=== PATIENT | male | born 1960 | race American Indian/Alaskan Native ===

== ENCOUNTER 2016-09-20 09:30 | Emergency (ER) | payer OTHER ==
--- NOTE | 2016-09-20 14:10 | Emergency Department Report ---
ED Back Pain/Injury HPI - General Chief Complaint: Extremity Injury, Lower Stated Complaint: TIGHT BEHIND BOTH LEGS Time Seen by Provider: 09/20/16 12:33 Source: patient Limitations: No Limitations - History of Present Illness Initial Comments: Patient complaining of atraumatic low back pain that is the same presentation and character as prior episodes. Patient states he is having some radicular bilateral thigh pain. Patient denies bowel or bladder incontinence, testicular pain, abdominal pain, nausea vomiting or diarrhea, also denies foot paresthesias or leg weakness. Patient states he was just cleared 2 weeks ago by his oncologist for multiple myeloma and had negative MRI of spine. MD Complaint: back pain -: Gradual - Related Data Previous Rx's Medication Instructions Recorded Last Taken Type Cyclobenzaprine [Flexeril] 10 mg PO TID PRN #15 tablet 09/20/16 Unknown Rx HYDROcodone/APAP 5-325 [[place] 1 each PO Q6HR PRN #10 tablet 09/20/16 Unknown Rx 5/325] Allergies Allergy/AdvReac Type Severity Reaction Status Date / Time No Known Allergies Allergy Unverified 09/03/14 10:11 ED Review of Systems ROS: Stated complaint: TIGHT BEHIND BOTH LEGS Other details as noted in HPI Constitutional: denies: chills, fever Eyes: denies: eye pain, eye discharge, vision change ENT: denies: ear pain, throat pain Respiratory: denies: cough, shortness of breath, wheezing Cardiovascular: denies: chest pain, palpitations Endocrine: no symptoms reported Gastrointestinal: denies: abdominal pain, nausea, vomiting, diarrhea, constipation, hematemesis Genitourinary: denies: urgency, dysuria, frequency, hematuria, testicular pain, testicular mass Musculoskeletal: back pain, other. denies: joint swelling, arthralgia Skin: denies: rash, lesions Neurological: denies: headache, weakness, paresthesias Psychiatric: denies: anxiety, depression Hematological/Lymphatic: denies: easy bleeding, easy bruising ED Past Medical Hx - Past Medical History Previous Medical History?: Yes Hx Hypertension: Yes Hx Diabetes: Yes Hx of Cancer: Yes (multiple myeloma) Additional medical history: Back injury - Surgical History Past Surgical History?: Yes Additional Surgical History: Stem Cell treatment - Social History Smoking Status: Never Smoker Substance Use Type: Alcohol, Prescribed - Medications Home Medications: Home Medications Medication Instructions Recorded Confirmed Last Taken Type Cyclobenzaprine [Flexeril] 10 mg PO TID PRN #15 tablet 09/20/16 Unknown Rx HYDROcodone/APAP 5-325 [[place] 1 each PO Q6HR PRN #10 tablet 09/20/16 Unknown Rx 5/325] ED Physical Exam - General Limitations: No Limitations General appearance: alert, in no apparent distress - Head Head exam: Present: atraumatic, normocephalic - Eye Eye exam: Present: normal appearance - ENT ENT exam: Present: mucous membranes moist - Neck Neck exam: Present: normal inspection. Absent: tenderness, meningismus - Respiratory Respiratory exam: Present: normal lung sounds bilaterally. Absent: respiratory distress - Cardiovascular Cardiovascular Exam: Present: regular rate, normal rhythm. Absent: systolic murmur, diastolic murmur, rubs, gallop - GI/Abdominal GI/Abdominal exam: Present: soft. Absent: distended, tenderness, guarding, rebound, rigid - Rectal Rectal exam: Present: deferred - Extremities Exam Extremities exam: Present: normal inspection, full ROM, normal capillary refill. Absent: tenderness, pedal edema, joint swelling, calf tenderness - Back Exam Back exam: Present: normal inspection, paraspinal tenderness. Absent: full ROM , CVA tenderness (R), CVA tenderness (L), vertebral tenderness, rash noted - Neurological Exam Neurological exam: Present: alert, oriented X3, normal gait - Psychiatric Psychiatric exam: Present: normal affect, normal mood - Skin Skin exam: Present: warm, dry, intact, normal color. Absent: rash ED Course Vital Signs 09/20/16 09:59 Temperature 98 F Pulse Rate 71 Respiratory 20 Rate Blood Pressure 152/98 O2 Sat by Pulse 96 Oximetry Critical care attestation.: If time is entered above; I have spent that time in minutes in the direct care of this critically ill patient, excluding procedure time. ED Disposition Clinical Impression: Back pain Disposition: DISCHARGED TO HOME OR SELFCARE Is pt being admited?: No Condition: Stable Instructions: Lumbar Radiculopathy (ED) Prescriptions: Cyclobenzaprine [Flexeril] 10 mg PO TID PRN #15 tablet PRN Reason: Muscle Spasm HYDROcodone/APAP 5-325 [[place] 5/325] 1 each PO Q6HR PRN #10 tablet PRN Reason: Pain Referrals: PRIMARY CARE,MD [Primary Care Provider] - 3-5 Days
[2016-09-20] MEDS ORDERED: DECADRON IM ONE (14:15)
[2016-09-20 14:52] VITALS: BP 134/92
== END 2016-09-20 14:50 | disposition home or self-care (01) ==
LOC: ED 09:30
DX: M54.5 Low back pain (principal); I10 Essential (primary) hypertension; E11.9 Type 2 diabetes mellitus without complications
CPT/HCPCS: 96372; 99282; J1100

== ENCOUNTER 2017-05-30 09:06 | Outpatient (CLI) | payer OTHER ==
--- NOTE | 2017-05-30 11:44 | Cat Scan Report ---
CT RIGHT SHOULDER WITHOUT AND WITH CONTRAST: 05/30/17 CLINICAL: Multiple myeloma and fracture. TECHNIQUE: Volumetric acquisition and 1.25 mm axial scan reconstructions without contrast and after the uneventful and intravenous injection of 100 cc Omnipaque 350. Contrast was injected in a left antecubital vein with a 22-gauge INT and consent was obtained prior to administration of contrast. FINDINGS: Transverse mildly displaced fracture of the humerus at the junction of the metaphysis and diaphysis. There is a large enhancing marrow lesion measuring approximately 12 cm in length by 4 cm transverse dimension by 3 cm AP dimension. This lytic lesion of the bone extends the width of the shaft and breaks through the medial cortex. A smaller 1.5 cm enhancing marrow lesion is identified approximately 3 cm distal to this larger lesion. This lesion is confined to the marrow. Normal glenohumeral alignment. Several lytic lesions of the glenoid, acromion, scapula and clavicle are consistent with lesions of multiple myeloma. No other fractures are identified. 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 A second lesion of the humeral diaphysis is confined to the marrow. Numerous additional lytic lesions of the scapula and clavicle are consistent with multiple myeloma.
== END 2017-05-30 09:07 | disposition home or self-care (01) ==
LOC: SPVIMAG 09:06
PROVIDERS: ATTEND Orthopaedic Surgery
DX: S42.301A Unspecified fracture of shaft of humerus, right arm, initial encounter for closed fracture (principal); C90.30 Solitary plasmacytoma not having achieved remission; X58.XXXA Exposure to other specified factors, initial encounter; Y93.89 Activity, other specified; Y92.89 Other specified places as the place of occurrence of the external cause; Y99.8 Other external cause status
CPT/HCPCS: 73202; Q9967

== ENCOUNTER 2018-10-05 12:20 | Emergency (ER) | payer OTHER ==
[2018-10-05] MEDS ORDERED: NACL 0.9% 1000 ML 1,000 ML IV ONE (13:02)
[2018-10-05] MEDS ORDERED: HumuLIN R IV ONE ×2 (13:02→16:02)
[2018-10-05 13:16] LABS: Hematocrit 37.2 % (35.5-45.6); Hemoglobin 12.6 gm/dl (11.8-15.2); Mean Corpuscular HGB Conc 34 % (32-34); Mean Corpuscular Volume 89 fl (84-94); Platelet Count 161 K/mm3 (140-440); Red Blood Count 4.18 M/mm3 (3.65-5.03); Red Cell Distribution Width 14.1 % (13.2-15.2)
[2018-10-05 13:54] LABS: Alanine Aminotransferase 51 units/L (7-56); Albumin 4.2 g/dL (3.9-5); BUN/Creatinine Ratio 17; Blood Urea Nitrogen 15 mg/dL (9-20); Calcium 9.4 mg/dL (8.4-10.2); Hemolysis Index 32
[2018-10-05 14:06] LABS: Basophils % (Manual) 0 % (0.0-1.8); Eosinophils % (Manual) 0 % (0.0-4.3); Myelocytes # (Manual) 0.1 K/mm3; Total Cells Counted 100
[2018-10-05 14:11] LABS: Poikilocytosis Few
[2018-10-05 14:12] LABS: Large Platelets Rare; Ovalocytes Few; Platelet Estimate Consistent w Auto
[2018-10-05 14:56] LABS: Bilirubin,Urine NEG (Negative); Blood,Urine SM (Negative); Color,Urine Straw (Yellow); Mucus,Urine FEW /HPF; Protein,Urine <15 mg/dL mg/dL (Negative); Urobilinogen,Urine < 2.0 mg/dL (<2.0)
[2018-10-05] MEDS ORDERED: HumuLIN R ONE (15:54)
[2018-10-05 16:02] VITALS: BP 106/70
--- NOTE | 2018-10-05 16:09 | Emergency Department Report ---
ED General Adult HPI - General Chief complaint: Hyperglycemia Stated complaint: HIGH GLUCOSE Time Seen by Provider: 10/05/18 13:00 Source: patient Mode of arrival: Ambulatory Limitations: No Limitations - History of Present Illness Initial comments: Patient is a 58-year-old [place] male with past history of diabetes who is presenting with hyperglycemia. Patient's last several days has had urinary frequency. He denies any abdominal cramps nausea vomiting diarrhea fevers or chills at this time. Patient states she's been eating quite a bit of fruit trying to be healthy but he states that he believes the sugar that his eating is disrupting his blood glucose. Patient saw his primary doctor and was told to come to the emergency department for evaluation. - Related Data Previous Rx's Medication Instructions Recorded Last Taken Type Cyclobenzaprine [Flexeril] 10 mg PO TID PRN #15 tablet 09/20/16 Unknown Rx HYDROcodone/APAP 5-325 [[place] 1 each PO Q6HR PRN #10 tablet 09/20/16 Unknown Rx 5/325] Allergies Allergy/AdvReac Type Severity Reaction Status Date / Time No Known Allergies Allergy Verified 10/05/18 12:22 ED Review of Systems ROS: Stated complaint: HIGH GLUCOSE Other details as noted in HPI Comment: All other systems reviewed and negative ED Past Medical Hx - Past Medical History Previous Medical History?: Yes Hx Hypertension: Yes Hx Diabetes: Yes (Type 11) Additional medical history: Back injury- Lumba disc. Multiple Myeloma - Surgical History Past Surgical History?: Yes Additional Surgical History: Stem Cell treatment - Social History Smoking Status: Never Smoker Substance Use Type: Alcohol - Medications Home Medications: Home Medications Medication Instructions Recorded Confirmed Last Taken Type Cyclobenzaprine [Flexeril] 10 mg PO TID PRN #15 tablet 09/20/16 Unknown Rx HYDROcodone/APAP 5-325 [[place] 1 each PO Q6HR PRN #10 tablet 09/20/16 Unknown Rx 5/325] ED Physical Exam - General Limitations: No Limitations General appearance: alert, in no apparent distress - Head Head exam: Present: atraumatic, normocephalic - Eye Eye exam: Present: normal appearance - ENT ENT exam: Present: mucous membranes moist - Neck Neck exam: Present: normal inspection - Respiratory Respiratory exam: Present: normal lung sounds bilaterally. Absent: respiratory distress, wheezes, rales, rhonchi - Cardiovascular Cardiovascular Exam: Present: regular rate, normal rhythm. Absent: systolic murmur, diastolic murmur, rubs, gallop - GI/Abdominal GI/Abdominal exam: Present: soft, normal bowel sounds. Absent: distended, tenderness, guarding, rebound - Rectal Rectal exam: Present: deferred - Extremities Exam Extremities exam: Present: normal inspection - Back Exam Back exam: Present: normal inspection - Neurological Exam Neurological exam: Present: alert, oriented X3 - Psychiatric Psychiatric exam: Present: normal affect, normal mood - Skin Skin exam: Present: warm, dry, intact, normal color. Absent: rash ED Course Vital Signs 10/05/18 10/05/18 10/05/18 12:39 13:27 13:31 Temperature 98.3 F Pulse Rate 88 84 Respiratory 16 18 Rate Blood Pressure 120/76 117/79 O2 Sat by Pulse 99 97 93 Oximetry 10/05/18 10/05/18 10/05/18 13:45 14:01 14:15 Temperature Pulse Rate Respiratory Rate Blood Pressure 117/79 117/79 117/79 O2 Sat by Pulse 94 94 88 Oximetry 10/05/18 10/05/18 10/05/18 14:30 14:45 15:00 Temperature Pulse Rate 77 74 74 Respiratory 23 21 23 Rate Blood Pressure 107/68 113/67 106/70 O2 Sat by Pulse 97 97 97 Oximetry 10/05/18 10/05/18 10/05/18 15:15 15:30 15:45 Temperature Pulse Rate 77 75 75 Respiratory 13 15 18 Rate Blood Pressure 107/68 107/72 106/70 O2 Sat by Pulse 98 99 95 Oximetry ED Medical Decision Making - Lab Data Result diagrams: 10/05/18 13:05 10/05/18 13:02 Lab Results 10/05/18 10/05/18 10/05/18 Range/Units 12:35 13:02 13:05 WBC 3.6 L (4.5-11.0) K/mm3 RBC 4.18 (3.65-5.03) M/mm3 Hgb 12.6 (11.8-15.2) gm/dl Hct 37.2 (35.5-45.6) % MCV 89 (84-94) fl MCH 30 (28-32) pg MCHC 34 (32-34) % RDW 14.1 (13.2-15.2) % Plt Count 161 (140-440) K/mm3 Mclean % (Auto) Treating Plant Pumper Add Manual Diff Complete Total Counted 100 Seg Neuts % (Manual) 56.0 (40.0-70.0) % Band Neutrophils % 0 % Lymphocytes % (Manual) 31.0 (13.4-35.0) % Reactive Lymphs % (Man) 0 % Monocytes % (Manual) 11.0 H (0.0-7.3) % Eosinophils % (Manual) 0 (0.0-4.3) % Basophils % (Manual) 0 (0.0-1.8) % Metamyelocytes % 0 % Myelocytes % 2.0 % Promyelocytes % 0 % Blast Cells % 0 % Nucleated RBC % Not Reportable Seg Neutrophils # Man 2.0 (1.8-7.7) K/mm3 Band Neutrophils # 0.0 K/mm3 Lymphocytes # (Manual) 1.1 L (1.2-5.4) K/mm3 Abs React Lymphs (Man) 0.0 K/mm3 Monocytes # (Manual) 0.4 (0.0-0.8) K/mm3 Eosinophils # (Manual) 0.0 (0.0-0.4) K/mm3 Basophils # (Manual) 0.0 (0.0-0.1) K/mm3 Metamyelocytes # 0.0 K/mm3 Myelocytes # 0.1 K/mm3 Promyelocytes # 0.0 K/mm3 Blast Cells # 0.0 K/mm3 WBC Morphology Not Reportable Hypersegmented Neuts Not Reportable Hyposegmented Neuts Not Reportable Hypogranular Neuts Not Reportable Smudge Cells Not Reportable Toxic Granulation Not Reportable Toxic Vacuolation Not Reportable Dohle Bodies Not Reportable Pelger-Huet Anomaly Not Reportable Jake Rods Not Reportable Platelet Estimate Consistent w auto Clumped Platelets Not Reportable Plt Clumps, EDTA Not Reportable Large Platelets Rare Giant Platelets Not Reportable Platelet Satelliting Not Reportable Plt Morphology Comment Not Reportable RBC Morphology Not Reportable Dimorphic RBCs Not Reportable Polychromasia Not Reportable Hypochromasia Not Reportable Poikilocytosis Few Anisocytosis Not Reportable Microcytosis Not Reportable Macrocytosis Not Reportable Spherocytes Not Reportable Pappenheimer Bodies Not Reportable Sickle Cells Not Reportable Target Cells Not Reportable Tear Drop Cells Not Reportable Ovalocytes Few Helmet Cells Not Reportable Aldrich-[place] Bodies Not Reportable [place] Rings Not Reportable [place] Cells Not Reportable Bite Cells Not Reportable Crenated Cell Not Reportable Elliptocytes Rare Acanthocytes (Spur) Not Reportable Rouleaux Not Reportable Hemoglobin C Crystals Not Reportable Schistocytes Not Reportable Malaria parasites Not Reportable Rayshawn Bodies Not Reportable Hem Pathologist Commnt No Sodium 135 L (137-145) mmol/L Potassium 4.2 (3.6-5.0) mmol/L Chloride 98.7 (98-107) mmol/L Carbon Dioxide 23 (22-30) mmol/L Anion Gap 18 mmol/L BUN 15 (9-20) mg/dL Creatinine 0.9 (0.8-1.5) mg/dL Estimated GFR > 60 ml/min BUN/Creatinine Ratio 17 % Glucose 464 H (75-100) mg/dL POC Glucose 438 H (70-105) Calcium 9.4 (8.4-10.2) mg/dL Total Bilirubin 0.40 (0.1-1.2) mg/dL AST 25 (5-40) units/L ALT 51 (7-56) units/L Alkaline Phosphatase 49 (35-129) units/L Total Protein 6.9 (6.3-8.2) g/dL Albumin 4.2 (3.9-5) g/dL Albumin/Globulin Ratio 1.6 % Urine Color (Yellow) Urine Turbidity (Clear) Urine pH (5.0-7.0) Ur Specific [place] (1.003-1.030) Urine Protein (Negative) mg/dL Urine Glucose (UA) (Negative) mg/dL Urine Ketones (Negative) mg/dL Urine Blood (Negative) Urine Nitrite (Negative) Urine Bilirubin (Negative) Urine Urobilinogen (<2.0) mg/dL Ur Leukocyte Esterase (Negative) Urine WBC (Auto) (0.0-6.0) /HPF Urine RBC (Auto) (0.0-6.0) /HPF U Epithel Cells (Auto) (0-13.0) /HPF Urine Mucus /HPF 10/05/18 10/05/18 Range/Units 14:36 15:47 WBC (4.5-11.0) K/mm3 RBC (3.65-5.03) M/mm3 Hgb (11.8-15.2) gm/dl Hct (35.5-45.6) % MCV (84-94) fl MCH (28-32) pg MCHC (32-34) % RDW (13.2-15.2) % Plt Count (140-440) K/mm3 Mclean % (Auto) Add Manual Diff Total Counted Seg Neuts % (Manual) (40.0-70.0) % Band Neutrophils % % Lymphocytes % (Manual) (13.4-35.0) % Reactive Lymphs % (Man) % Monocytes % (Manual) (0.0-7.3) % Eosinophils % (Manual) (0.0-4.3) % Basophils % (Manual) (0.0-1.8) % Metamyelocytes % % Myelocytes % % Promyelocytes % % Blast Cells % % Nucleated RBC % Seg Neutrophils # Man (1.8-7.7) K/mm3 Band Neutrophils # K/mm3 Lymphocytes # (Manual) (1.2-5.4) K/mm3 Abs React Lymphs (Man) K/mm3 Monocytes # (Manual) (0.0-0.8) K/mm3 Eosinophils # (Manual) (0.0-0.4) K/mm3 Basophils # (Manual) (0.0-0.1) K/mm3 Metamyelocytes # K/mm3 Myelocytes # K/mm3 Promyelocytes # K/mm3 Blast Cells # K/mm3 WBC Morphology Hypersegmented Neuts Hyposegmented Neuts Hypogranular Neuts Smudge Cells Toxic Granulation Toxic Vacuolation Dohle Bodies Pelger-Huet Anomaly Jake Rods Platelet Estimate Clumped Platelets Plt Clumps, EDTA Large Platelets Giant Platelets Platelet Satelliting Plt Morphology Comment RBC Morphology Dimorphic RBCs Polychromasia Hypochromasia Poikilocytosis Anisocytosis Microcytosis Macrocytosis Spherocytes Pappenheimer Bodies Sickle Cells Target Cells Tear Drop Cells Ovalocytes Helmet Cells Aldrich-[place] Bodies [place] Rings Ivan Cells Bite Cells Crenated Cell Elliptocytes Acanthocytes (Spur) Rouleaux Hemoglobin C Crystals Schistocytes Malaria parasites Rayshawn Bodies Hem Pathologist Commnt Sodium (137-145) mmol/L Potassium (3.6-5.0) mmol/L Chloride (98-107) mmol/L Carbon Dioxide (22-30) mmol/L Anion Gap mmol/L BUN (9-20) mg/dL Creatinine (0.8-1.5) mg/dL Estimated GFR ml/min BUN/Creatinine Ratio % Glucose (75-100) mg/dL POC Glucose 306 H (70-105) Calcium (8.4-10.2) mg/dL Total Bilirubin (0.1-1.2) mg/dL AST (5-40) units/L ALT (7-56) units/L Alkaline Phosphatase (35-129) units/L Total Protein (6.3-8.2) g/dL Albumin (3.9-5) g/dL Albumin/Globulin Ratio % Urine Color Straw (Yellow) Urine Turbidity Clear (Clear) Urine pH 5.0 (5.0-7.0) Ur Specific [place] 1.033 H (1.003-1.030) Urine Protein <15 mg/dl (Negative) mg/dL Urine Glucose (UA) >=500 (Negative) mg/dL Urine Ketones Tr (Negative) mg/dL Urine Blood Sm (Negative) Urine Nitrite Neg (Negative) Urine Bilirubin Neg (Negative) Urine Urobilinogen < 2.0 (<2.0) mg/dL Ur Leukocyte Esterase Neg (Negative) Urine WBC (Auto) 1.0 (0.0-6.0) /HPF Urine RBC (Auto) 1.0 (0.0-6.0) /HPF U Epithel Cells (Auto) 1.0 (0-13.0) /HPF Urine Mucus Few /HPF - Medical Decision Making Per patient's laboratory interpretation is not in DKA. Patient's glucose is improving after IV fluids and insulin and hydration be discharged home. Critical care attestation.: If time is entered above; I have spent that time in minutes in the direct care of this critically ill patient, excluding procedure time. ED Disposition Clinical Impression: Hyperglycemia Disposition: DC-01 TO HOME OR SELFCARE Is pt being admited?: No Does the pt Need Aspirin: No Condition: Stable Instructions: Hyperglycemia, Non-Diabetic (ED) Additional Instructions: Please follow-up with your primary care physician regarding diabetes diet Referrals: EULALIA FISHER MD [Primary Care Provider] - 3-5 Days Time of Disposition: 16:08
== END 2018-10-05 16:21 | disposition home or self-care (01) ==
LOC: ED 12:20
DX: E11.65 Type 2 diabetes mellitus with hyperglycemia (principal); I10 Essential (primary) hypertension; Z79.899 Other long term (current) drug therapy
CPT/HCPCS: 36415; 80053; 81001; 82962; 85007; 85025; 96361; 96374; 96376; 99283; J7030; J1815

== ENCOUNTER 2020-02-24 15:12 | Emergency (ER) | payer OTHER ==
[2020-02-24] MEDS ORDERED: SODIUM CHLORIDE 0.9% 1000 ML 1,000 ML IV ONE (16:32)
--- NOTE | 2020-02-24 18:15 | Emergency Department Report ---
ED General Adult HPI - General Chief complaint: Hyperglycemia Stated complaint: BLOOD SUGAR HIGH Time Seen by Provider: 02/24/20 16:32 Source: patient Mode of arrival: Ambulatory Limitations: No Limitations - History of Present Illness Initial comments: Patient is a 59-year-old male presents emergency room with complaints of hyperglycemia. He states that yesterday his blood sugar was 300 when he woke up in the morning. He states that when he rechecked it later in the afternoon and it decreased down to 200s. He states that today when he checked it was 322. He states that he does not follow a strict diet for diabetes. He denies any nausea, vomiting, diarrhea, cough, shortness breath, fever, abdominal pain, chest pain. He also has a past medical history of hypertension. He states that he takes metformin for his diabetes at thousand milligrams twice daily. He does not take anything else for his diabetes. He states that he does have a primary care doctor that he sees regularly. - Related Data Previous Rx's Medication Instructions Recorded Last Taken Type Cyclobenzaprine [Flexeril] 10 mg PO TID PRN #15 tablet 09/20/16 Unknown Rx HYDROcodone/APAP 5-325 [[place] 1 each PO Q6HR PRN #10 tablet 09/20/16 Unknown Rx 5/325] Allergies Allergy/AdvReac Type Severity Reaction Status Date / Time No Known Allergies Allergy Verified 10/05/18 12:22 ED Review of Systems ROS: Stated complaint: BLOOD SUGAR HIGH Other details as noted in HPI Comment: All other systems reviewed and negative ED Past Medical Hx - Past Medical History Previous Medical History?: Yes Hx Hypertension: Yes Hx Diabetes: Yes (Type 11) Hx of Cancer: Yes (Bone CA 2007, takes PO Chemo) Additional medical history: Back injury- Lumba disc. Multiple Myeloma - Surgical History Past Surgical History?: Yes Additional Surgical History: Stem Cell treatment - Social History Smoking Status: Never Smoker Substance Use Type: Alcohol - Medications Home Medications: Home Medications Medication Instructions Recorded Confirmed Last Taken Type Cyclobenzaprine [Flexeril] 10 mg PO TID PRN #15 tablet 09/20/16 Unknown Rx HYDROcodone/APAP 5-325 [[place] 1 each PO Q6HR PRN #10 tablet 09/20/16 Unknown Rx 5/325] ED Physical Exam - General Limitations: No Limitations General appearance: alert, in no apparent distress - Head Head exam: Present: atraumatic, normocephalic - Eye Eye exam: Present: normal appearance - ENT ENT exam: Present: mucous membranes moist - Respiratory Respiratory exam: Present: normal lung sounds bilaterally. Absent: respiratory distress, wheezes, rales, rhonchi, stridor, chest wall tenderness, accessory muscle use, decreased breath sounds, prolonged expiratory - Cardiovascular Cardiovascular Exam: Present: regular rate, normal rhythm, normal heart sounds. Absent: systolic murmur, diastolic murmur, rubs, gallop - Neurological Exam Neurological exam: Present: alert, oriented X3 - Psychiatric Psychiatric exam: Present: normal affect, normal mood - Skin Skin exam: Present: warm, dry, intact ED Course Vital Signs 02/24/20 02/24/20 15:29 20:15 Temperature 98.3 F Pulse Rate 79 75 Respiratory 18 18 Rate Blood Pressure 121/73 Blood Pressure 132/84 [Right] O2 Sat by Pulse 99 98 Oximetry ED Medical Decision Making - Lab Data Result diagrams: 02/24/20 16:07 02/24/20 16:07 Lab Results 02/24/20 02/24/20 02/24/20 Range/Units 15:45 16:07 16:07 WBC 4.0 L (4.5-11.0) K/mm3 RBC 3.71 (3.65-5.03) M/mm3 Hgb 11.9 (11.8-15.2) gm/dl Hct 35.4 L (35.5-45.6) % MCV 95 H (84-94) fl MCH 32 (28-32) pg MCHC 34 (32-34) % RDW 15.4 H (13.2-15.2) % Plt Count 138 L (140-440) K/mm3 Lymph % (Auto) 38.8 H (13.4-35.0) % [place] % (Auto) 11.0 H (0.0-7.3) % Eos % (Auto) 3.9 (0.0-4.3) % Baso % (Auto) 0.6 (0.0-1.8) % Lymph # 1.5 (1.2-5.4) K/mm3 [place] # 0.4 (0.0-0.8) K/mm3 Eos # 0.2 (0.0-0.4) K/mm3 Baso # 0.0 (0.0-0.1) K/mm3 Seg Neutrophils % 45.7 (40.0-70.0) % Seg Neutrophils # 1.8 (1.8-7.7) K/mm3 VBG pH (7.320-7.420) Sodium 133 L (137-145) mmol/L Potassium 4.4 (3.6-5.0) mmol/L Chloride 95.2 L (98-107) mmol/L Carbon Dioxide 24 (22-30) mmol/L Anion Gap 18 mmol/L BUN 19 (9-20) mg/dL Creatinine 1.1 (0.8-1.3) mg/dL Estimated GFR > 60 ml/min BUN/Creatinine Ratio 17 % Glucose 355 H (75-100) mg/dL POC Glucose 360 H (70-105) Calcium 9.8 (8.4-10.2) mg/dL Total Bilirubin 0.40 (0.1-1.2) mg/dL AST 26 (5-40) units/L ALT 70 H (7-56) units/L Alkaline Phosphatase 55 (35-129) units/L Total Protein 6.7 (6.3-8.2) g/dL Albumin 4.1 (3.9-5) g/dL Albumin/Globulin Ratio 1.6 % Urine Color (Yellow) Urine Turbidity (Clear) Urine pH (5.0-7.0) Ur Specific [place] (1.003-1.030) Urine Protein (Negative) mg/dL Urine Glucose (UA) (Negative) mg/dL Urine Ketones (Negative) mg/dL Urine Blood (Negative) Urine Nitrite (Negative) Urine Bilirubin (Negative) Urine Urobilinogen (<2.0) mg/dL Ur Leukocyte Esterase (Negative) Urine WBC (Auto) (0.0-6.0) /HPF Urine RBC (Auto) (0.0-6.0) /HPF U Epithel Cells (Auto) (0-13.0) /HPF Urine Mucus /HPF 02/24/20 02/24/20 02/24/20 Range/Units 16:07 18:07 20:17 WBC (4.5-11.0) K/mm3 RBC (3.65-5.03) M/mm3 Hgb (11.8-15.2) gm/dl Hct (35.5-45.6) % MCV (84-94) fl MCH (28-32) pg MCHC (32-34) % RDW (13.2-15.2) % Plt Count (140-440) K/mm3 Lymph % (Auto) (13.4-35.0) % [place] % (Auto) (0.0-7.3) % Eos % (Auto) (0.0-4.3) % Baso % (Auto) (0.0-1.8) % Lymph # (1.2-5.4) K/mm3 [place] # (0.0-0.8) K/mm3 Eos # (0.0-0.4) K/mm3 Baso # (0.0-0.1) K/mm3 Seg Neutrophils % (40.0-70.0) % Seg Neutrophils # (1.8-7.7) K/mm3 VBG pH 7.334 (7.320-7.420) Sodium (137-145) mmol/L Potassium (3.6-5.0) mmol/L Chloride (98-107) mmol/L Carbon Dioxide (22-30) mmol/L Anion Gap mmol/L BUN (9-20) mg/dL Creatinine (0.8-1.3) mg/dL Estimated GFR ml/min BUN/Creatinine Ratio % Glucose (75-100) mg/dL POC Glucose 252 H (70-105) Calcium (8.4-10.2) mg/dL Total Bilirubin (0.1-1.2) mg/dL AST (5-40) units/L ALT (7-56) units/L Alkaline Phosphatase (35-129) units/L Total Protein (6.3-8.2) g/dL Albumin (3.9-5) g/dL Albumin/Globulin Ratio % Urine Color Yellow (Yellow) Urine Turbidity Clear (Clear) Urine pH 5.0 (5.0-7.0) Ur Specific [place] 1.022 (1.003-1.030) Urine Protein <15 mg/dl (Negative) mg/dL Urine Glucose (UA) >=500 (Negative) mg/dL Urine Ketones Neg (Negative) mg/dL Urine Blood Lg (Negative) Urine Nitrite Neg (Negative) Urine Bilirubin Neg (Negative) Urine Urobilinogen < 2.0 (<2.0) mg/dL Ur Leukocyte Esterase Neg (Negative) Urine WBC (Auto) 3.0 (0.0-6.0) /HPF Urine RBC (Auto) 11.0 (0.0-6.0) /HPF U Epithel Cells (Auto) < 1.0 (0-13.0) /HPF Urine Mucus Few /HPF Vital Signs 02/24/20 02/24/20 15:29 20:15 Temperature 98.3 F Pulse Rate 79 75 Respiratory 18 18 Rate Blood Pressure 121/73 Blood Pressure 132/84 [Right] O2 Sat by Pulse 99 98 Oximetry - Medical Decision Making Patient is a 59-year-old male presents emergency room with complaints of hyperglycemia. He states that yesterday his blood sugar was 300 when he woke up in the morning. He states that when he rechecked it later in the afternoon and it decreased down to 200s. He states that today when he checked it was 322. He states that he does not follow a strict diet for diabetes. He denies any nausea, vomiting, diarrhea, cough, shortness breath, fever, abdominal pain, chest pain. He also has a past medical history of hypertension. He states that he takes metformin for his diabetes at thousand milligrams twice daily. He does not take anything else for his diabetes. He states that he does have a primary care doctor that he sees regularly. Vitals are normal. No abnormality on physical exam as documented in chart. Labs significant for hyperglycemia blood glucose of 355, renal function is normal, no ketones in the urine, no signs of DKA. Patient given 1 L IV fluids and 6 units of insulin and blood glucose improved to 252. Discussed diet and lifestyle modifications with patient. Discussed the risks associated with long-term uncontrolled diabetes with patient. Discussed the importance of primary care follow-up for better glycemic control. Patient states that he is going to follow-up with his primary care physician tomorrow. advised pt Please follow-up with your primary care doctor in the next 2 to 3 days. You need to have better glycemic control. Please eat a low sugar/low carbohydrate diet. Increase your water intake. Return to emergency room for new or worsening symptoms. Critical care attestation.: If time is entered above; I have spent that time in minutes in the direct care of this critically ill patient, excluding procedure time. ED Disposition Clinical Impression: Hyperglycemia Disposition: DC-01 TO HOME OR SELFCARE Is pt being admited?: No Does the pt Need Aspirin: No Condition: Stable Instructions: Diabetic Hyperglycemia (ED) Additional Instructions: Please follow-up with your primary care doctor in the next 2 to 3 days. You need to have better glycemic control. Please eat a low sugar/low carbohydrate diet. Increase your water intake. Return to emergency room for new or worsening symptoms. Referrals: PRIMARY CARE, [Primary Care Provider] - 2-3 Days Time of Disposition: 20:03 Print Language: JAPANESE
[2020-02-24 18:24] LABS: Basophils % (Auto) 0.6 % (0.0-1.8); Eosinophils # (Auto) 0.2 K/mm3 (0.0-0.4); Eosinophils % (Auto) 3.9 % (0.0-4.3); Hematocrit 35.4 % (35.5-45.6); Hemoglobin 11.9 gm/dl (11.8-15.2); Lymphocytes # (Auto) 1.5 K/mm3 (1.2-5.4); Lymphocytes % (Auto) 38.8 % (13.4-35.0); Mean Corpuscular HGB Conc 34 % (32-34); Mean Corpuscular Volume 95 fl (84-94); Monocytes # (Auto) 0.4 K/mm3 (0.0-0.8); Platelet Count 138 K/mm3 (140-440); Red Blood Count 3.71 M/mm3 (3.65-5.03); Red Cell Distribution Width 15.4 % (13.2-15.2)
[2020-02-24 18:40] LABS: Bilirubin,Urine NEG (Negative); Blood,Urine LG (Negative); Color,Urine Yellow (Yellow); Mucus,Urine FEW /HPF; Protein,Urine <15 mg/dL mg/dL (Negative); Urobilinogen,Urine < 2.0 mg/dL (<2.0)
[2020-02-24 18:46] LABS: Alanine Aminotransferase 70 units/L (7-56); Albumin 4.1 g/dL (3.9-5); BUN/Creatinine Ratio 17; Blood Urea Nitrogen 19 mg/dL (9-20); Calcium 9.8 mg/dL (8.4-10.2); Hemolysis Index 23
[2020-02-24] MEDS ORDERED: INSULIN REGULAR, HUMAN 100 UNIT/ML 3ML VIAL IV ONE (18:54)
[2020-02-24] MEDS ORDERED: INSULIN REGULAR, HUMAN 100 UNITS/1 ML ONE (19:30)
[2020-02-24 20:16] VITALS: BP 132/84
== END 2020-02-24 20:15 | disposition home or self-care (01) ==
LOC: ED 15:12
DX: E11.65 Type 2 diabetes mellitus with hyperglycemia (principal); I10 Essential (primary) hypertension; Z85.830 Personal history of malignant neoplasm of bone; Z98.890 Other specified postprocedural states; Z79.899 Other long term (current) drug therapy
CPT/HCPCS: 36415; 80053; 81001; 82805; 82962; 85025; 96361; 96374; 99283; J7030; J1815

== ENCOUNTER 2020-03-23 11:06 | Observation (INO) | payer OTHER ==
[2020-03-23] MEDS ORDERED: SODIUM CHLORIDE 0.9% 1000 ML 1,000 ML IV ONE (12:57)
--- NOTE | 2020-03-23 13:09 | Emergency Department Report ---
ED General Adult HPI - General Chief complaint: Urogenital-Male Stated complaint: CANT URINATE Time Seen by Provider: 03/23/20 12:50 Source: patient Mode of arrival: Ambulatory Limitations: No Limitations - History of Present Illness Initial comments: This is a 59-year-old man that definitely gives a confusing history. It states in triage that he "cannot urinate". Initially it sounded like he was urinating with less frequency. However, upon more detailed questioning he stated that he urinated 3 times in the waiting room and then was able to give a urine sample upon bed placement. He states he has had some discomfort upon urinating. He states he checked his sugar yesterday and it was 150. He has been taking metformin and glipizide as directed. He is not on insulin. He does not report any shortness of breath, nausea, vomiting or any other specific symptoms and denies fever or chills as well. He does not have a history of prostate related problems. Patient was seen here at the end of January for "diabetic hyperglycemia". He was given IV fluids. He was not in DKA. Sugar was approximately 330. -: hour(s), days(s) Associated Symptoms: denies other symptoms - Related Data Previous Rx's Medication Instructions Recorded Last Taken Type Cyclobenzaprine [Flexeril] 10 mg PO TID PRN #15 tablet 09/20/16 Unknown Rx HYDROcodone/APAP 5-325 [[place] 1 each PO Q6HR PRN #10 tablet 09/20/16 Unknown Rx 5/325] Allergies Allergy/AdvReac Type Severity Reaction Status Date / Time No Known Allergies Allergy Verified 10/05/18 12:22 ED Review of Systems ROS: Stated complaint: CANT URINATE Other details as noted in HPI Constitutional: denies: chills, fever Eyes: denies: eye pain, eye discharge, vision change ENT: denies: ear pain, throat pain Respiratory: denies: cough, shortness of breath, wheezing Cardiovascular: denies: chest pain, palpitations Endocrine: see HPI Gastrointestinal: denies: abdominal pain, nausea, diarrhea Genitourinary: dysuria, frequency. denies: urgency Musculoskeletal: denies: back pain, joint swelling, arthralgia Skin: denies: rash, lesions Neurological: denies: headache, weakness, paresthesias Psychiatric: denies: anxiety, depression Hematological/Lymphatic: denies: easy bleeding, easy bruising ED Past Medical Hx - Past Medical History Previous Medical History?: Yes Hx Hypertension: Yes Hx Diabetes: Yes (Type 11) Additional medical history: Back injury- Lumba disc. Multiple Myeloma - Surgical History Past Surgical History?: Yes Additional Surgical History: Stem Cell treatment - Social History Smoking Status: Never Smoker Substance Use Type: Alcohol - Medications Home Medications: Home Medications Medication Instructions Recorded Confirmed Last Taken Type Cyclobenzaprine [Flexeril] 10 mg PO TID PRN #15 tablet 09/20/16 Unknown Rx HYDROcodone/APAP 5-325 [[place] 1 each PO Q6HR PRN #10 tablet 09/20/16 Unknown Rx 5/325] ED Physical Exam - General Limitations: No Limitations General appearance: alert, in no apparent distress - Head Head exam: Present: atraumatic, normocephalic - Eye Eye exam: Present: normal appearance. Absent: scleral icterus - ENT ENT exam: Present: mucous membranes moist - Neck Neck exam: Present: normal inspection - Respiratory Respiratory exam: Present: normal lung sounds bilaterally. Absent: respiratory distress - Cardiovascular Cardiovascular Exam: Present: regular rate, normal rhythm. Absent: systolic murmur, diastolic murmur, rubs, gallop - GI/Abdominal GI/Abdominal exam: Present: soft, normal bowel sounds. Absent: distended, tenderness, guarding, rebound - Rectal Rectal exam: Present: deferred - Extremities Exam Extremities exam: Present: normal inspection - Back Exam Back exam: Present: normal inspection - Neurological Exam Neurological exam: Present: alert, oriented X3, CN II-XII intact. Absent: motor sensory deficit - Psychiatric Psychiatric exam: Present: normal affect, normal mood - Skin Skin exam: Present: warm, dry, intact, normal color. Absent: rash ED Course Vital Signs 03/23/20 03/23/20 11:24 14:28 Temperature 98 F Pulse Rate 88 Respiratory 20 Rate Blood Pressure 132/62 Blood Pressure 177/102 [Left] O2 Sat by Pulse 100 Oximetry - Reevaluation(s) Reevaluation #1: Patient had persistent hypoglycemia related to diabetic nephropathy/sulfonylurea. He is appropriate for observation on MedSurg. His sugar did not go up after eating. He was given D50. He will be placed on D5 h correction-normal saline. He will be admitted by Dr. Samayoa for glucose and renal function monitoring. 03/23/20 14:49 ED Medical Decision Making - Lab Data Result diagrams: 03/23/20 12:58 03/23/20 12:58 Laboratory Results - last 24 hr 03/23/20 03/23/20 03/23/20 12:58 12:58 13:04 WBC 5.5 RBC 3.43 L Hgb 11.2 L Hct 33.1 L MCV 97 H MCH 33 H MCHC 34 RDW 15.3 H Plt Count 198 Lymph % (Auto) 24.3 [place] % (Auto) 9.0 H Eos % (Auto) 4.2 Baso % (Auto) 0.8 Lymph # (Auto) 1.3 [place] # (Auto) 0.5 Eos # (Auto) 0.2 Baso # (Auto) 0.0 Seg Neutrophils % 61.7 Seg Neutrophils # 3.4 VBG pH 7.386 Sodium 141 Potassium 4.5 Chloride 101.3 Carbon Dioxide 27 Anion Gap 17 BUN 21 H Creatinine 1.5 H Estimated GFR 58 BUN/Creatinine Ratio 14 Glucose 53 L Calcium 10.5 H Critical care attestation.: If time is entered above; I have spent that time in minutes in the direct care of this critically ill patient, excluding procedure time. ED Disposition Clinical Impression: Hypoglycemia associated with type 2 diabetes mellitus, Acute kidney injury Diabetic nephropathy Qualifiers: Diabetes mellitus type: type 2 Qualified Code(s): E11.21 - Type 2 diabetes mellitus with diabetic nephropathy Disposition: OP ADMIT IP TO THIS HOSP Is pt being admited?: Yes Does the pt Need Aspirin: Yes Condition: Stable Instructions: Diabetes Mellitus Type 2 in Adults (ED) Time of Disposition: 14:51
[2020-03-23 13:46] LABS: Basophils % (Auto) 0.8 % (0.0-1.8); Eosinophils # (Auto) 0.2 K/mm3 (0.0-0.4); Eosinophils % (Auto) 4.2 % (0.0-4.3); Hematocrit 33.1 % (35.5-45.6); Hemoglobin 11.2 gm/dl (11.8-15.2); Lymphocytes # (Auto) 1.3 K/mm3 (1.2-5.4); Lymphocytes % (Auto) 24.3 % (13.4-35.0); Mean Corpuscular HGB Conc 34 % (32-34); Mean Corpuscular Volume 97 fl (84-94); Monocytes # (Auto) 0.5 K/mm3 (0.0-0.8); Platelet Count 198 K/mm3 (140-440); Red Blood Count 3.43 M/mm3 (3.65-5.03); Red Cell Distribution Width 15.3 % (13.2-15.2)
[2020-03-23 13:58] LABS: Calcium 10.5 mg/dL (8.4-10.2)
[2020-03-23 14:28] LABS: Amorphous Crystals,Urine Few; Bilirubin,Urine NEG (Negative); Blood,Urine MOD (Negative); Color,Urine Yellow (Yellow); Protein,Urine <15 mg/dL mg/dL (Negative); Urobilinogen,Urine < 2.0 mg/dL (<2.0)
[2020-03-23] MEDS ORDERED: DEXTROSE 50% IN WATER (25GM) 50 ML SYRINGE IV ONE ×2 (14:33→14:35)
[2020-03-23] MEDS ORDERED: ASPIRIN 81 MG TAB CHEW PO ONE (14:51)
[2020-03-23] MEDS ORDERED: D5W/0.45% NACL 1,000 ML IV SCH (15:00)
--- NOTE | 2020-03-23 16:39 | XRay Report ---
CHEST 1 VIEW 1450 INDICATION / CLINICAL INFORMATION: hypertension COMPARISON: 02/21/2007 FINDINGS: SUPPORT DEVICES: None HEART / MEDIASTINUM: No significant abnormality. LUNGS / PLEURA: Minimal left basilar atelectasis is seen. No definite acute infiltrates are noted. No pneumothorax. ADDITIONAL FINDINGS: No significant additional findings. IMPRESSION: No significant acute abnormality Signer Name: Rikki Oswald MD Signed: 03/23/2020 4:35 PM Workstation Name: [id number]
[2020-03-23] MEDS ORDERED: ONDANSETRON 4 MG/2 ML INJ IV PRN (21:18)
[2020-03-23] MEDS ORDERED: ACETAMINOPHEN 325 MG TAB PO PRN (21:18)
[2020-03-23] MEDS ORDERED: oxyCODONE /ACETAMINOPHEN 5-325MG TAB PO PRN (21:18)
--- NOTE | 2020-03-23 21:23 | History and Physical Report ---
History of Present Illness Date of examination: 03/23/20 Date of admission: 03/23/20 15:17 Chief complaint: Persistent low sugars. History of present illness: 59-year-old male comes in for feeling very weak and anxious. Patient was found to have low sugars--blood glucose levels which were aggravating to his weakness and anxiety. Patient is on glyburide and metformin. Lab work in the emergency room indicates increased creatinine of 1.5 which may be responsible for frequent hypoglycemic episodes. No fever or chills. No exposure to coronavirus. - Past Medical History Previous Medical History?: Yes Hypertension: Yes Diabetes: Yes (Type 11) Additional medical history: Back injury- Lumba disc. Multiple Myeloma - Surgical History Past Surgical History?: Yes Additional Surgical History: Stem Cell treatment - Social History Smoking Status: Never Smoker Substance Use Type: Alcohol - Medications Home Medications: Home Medications Medication Instructions Recorded Confirmed Last Taken Type Cyclobenzaprine [Flexeril] 10 mg PO TID PRN #15 tablet 09/20/16 Unknown Rx HYDROcodone/APAP 5-325 [[place] 1 each PO Q6HR PRN #10 tablet 09/20/16 Unknown Rx 5/325] Review of Systems ROS: Stated complaint: CANT URINATE Other details as noted in HPI Constitutional: denies: chills, fever Eyes: denies: eye pain, eye discharge, vision change ENT: denies: ear pain, throat pain Respiratory: denies: cough, shortness of breath, wheezing Cardiovascular: denies: chest pain, palpitations Endocrine: see HPI Gastrointestinal: denies: abdominal pain, nausea, diarrhea Genitourinary: dysuria, frequency. denies: urgency Musculoskeletal: denies: back pain, joint swelling, arthralgia Skin: denies: rash, lesions Neurological: denies: headache, weakness, paresthesias Psychiatric: denies: anxiety, depression Hematological/Lymphatic: denies: easy bleeding, easy bruising Medications and Allergies Allergies Allergy/AdvReac Type Severity Reaction Status Date / Time No Known Allergies Allergy Verified 10/05/18 12:22 Home Medications Medication Instructions Recorded Confirmed Last Taken Type Aspirin 81 mg PO DAILY 03/23/20 03/23/20 03/23/20 15:18 History 0900 Pomalyst 2 mg PO DAILY 03/23/20 03/23/20 03/23/20 10:30 History amLODIPine 10 mg PO DAILY 03/23/20 03/23/20 03/23/20 10:30 History benazepril (NF) [Benazepril (Nf)] 10 mg PO DAILY 03/23/20 03/23/20 03/23/20 10:30 History glipiZIDE [Glucotrol] 10 mg PO DAILY 03/23/20 03/23/20 03/23/20 10:30 History metFORMIN 1,000 mg PO 03/23/20 03/23/20 10:30 History Active Meds: Active Medications Dextrose/Sodium Chloride (D5/0.45ns) 1,000 mls @ 100 mls/hr IV DIRECT KAPIL Exam - Constitutional Vitals: Temp Pulse Resp BP Pulse Ox 98.8 F 84 20 138/74 99 03/23/20 19:04 03/23/20 19:04 03/23/20 19:04 03/23/20 19:04 03/23/20 19:04 General appearance: Present: no acute distress, well-nourished - EENT Eyes: Present: PERRL ENT: hearing intact, clear oral mucosa - Neck Neck: Present: supple, normal ROM - Respiratory Respiratory effort: normal Respiratory: bilateral: CTA - Cardiovascular Heart rate: 78 Rhythm: regular Heart Sounds: Present: S1 & S2. Absent: rub, click - Extremities Extremities: pulses symmetrical, No edema Peripheral Pulses: within normal limits - Abdominal General gastrointestinal: Present: soft, non-tender, non-distended, normal bowel sounds Male genitourinary: Present: normal - Integumentary Integumentary: Present: clear, warm, dry - Musculoskeletal Musculoskeletal: gait normal, strength equal bilaterally - Psychiatric Psychiatric: appropriate mood/affect, intact judgment & insight - Neurologic Neurologic: CNII-XII intact, moves all extremities - Allied Health Allied health notes reviewed: nursing, case management Results - Labs CBC & Chem 7: 03/23/20 12:58 03/23/20 12:58 Labs: Laboratory Last Values WBC 5.5 K/mm3 (4.5-11.0) 03/23/20 12:58 RBC 3.43 M/mm3 (3.65-5.03) L 03/23/20 12:58 Hgb 11.2 gm/dl (11.8-15.2) L 03/23/20 12:58 Hct 33.1 % (35.5-45.6) L 03/23/20 12:58 MCV 97 fl (84-94) H 03/23/20 12:58 MCH 33 pg (28-32) H 03/23/20 12:58 MCHC 34 % (32-34) 03/23/20 12:58 RDW 15.3 % (13.2-15.2) H 03/23/20 12:58 Plt Count 198 K/mm3 (140-440) 03/23/20 12:58 Lymph % (Auto) 24.3 % (13.4-35.0) 03/23/20 12:58 [place] % (Auto) 9.0 % (0.0-7.3) H 03/23/20 12:58 Eos % (Auto) 4.2 % (0.0-4.3) 03/23/20 12:58 Baso % (Auto) 0.8 % (0.0-1.8) 03/23/20 12:58 Lymph # (Auto) 1.3 K/mm3 (1.2-5.4) 03/23/20 12:58 [place] # (Auto) 0.5 K/mm3 (0.0-0.8) 03/23/20 12:58 Eos # (Auto) 0.2 K/mm3 (0.0-0.4) 03/23/20 12:58 Baso # (Auto) 0.0 K/mm3 (0.0-0.1) 03/23/20 12:58 Seg Neutrophils % 61.7 % (40.0-70.0) 03/23/20 12:58 Seg Neutrophils # 3.4 K/mm3 (1.8-7.7) 03/23/20 12:58 VBG pH 7.386 (7.320-7.420) 03/23/20 13:04 Sodium 141 mmol/L (137-145) 03/23/20 12:58 Potassium 4.5 mmol/L (3.6-5.0) 03/23/20 12:58 Chloride 101.3 mmol/L (98-107) 03/23/20 12:58 Carbon Dioxide 27 mmol/L (22-30) 03/23/20 12:58 Anion Gap 17 mmol/L 03/23/20 12:58 BUN 21 mg/dL (9-20) H 03/23/20 12:58 Creatinine 1.5 mg/dL (0.8-1.3) H 03/23/20 12:58 Estimated GFR 58 ml/min 03/23/20 12:58 BUN/Creatinine Ratio 14 % 03/23/20 12:58 Glucose 53 mg/dL (75-100) L 03/23/20 12:58 POC Glucose 111 (70-105) H 03/23/20 19:20 Ketones Quantitative Negative (Negative) 03/23/20 13:04 Calcium 10.5 mg/dL (8.4-10.2) H 03/23/20 12:58 Urine Color Yellow (Yellow) 03/23/20 13:36 Urine Turbidity Clear (Clear) 03/23/20 13:36 Urine pH 8.0 (5.0-7.0) H 03/23/20 13:36 Ur Specific [place] 1.014 (1.003-1.030) 03/23/20 13:36 Urine Protein <15 mg/dl mg/dL (Negative) 03/23/20 13:36 Urine Glucose (UA) Neg mg/dL (Negative) 03/23/20 13:36 Urine Ketones Neg mg/dL (Negative) 03/23/20 13:36 Urine Blood Mod (Negative) 03/23/20 13:36 Urine Nitrite Neg (Negative) 03/23/20 13:36 Urine Bilirubin Neg (Negative) 03/23/20 13:36 Urine Urobilinogen < 2.0 mg/dL (<2.0) 03/23/20 13:36 Ur Leukocyte Esterase Neg (Negative) 03/23/20 13:36 Urine WBC (Auto) 1.0 /HPF (0.0-6.0) 03/23/20 13:36 Urine RBC (Auto) 14.0 /HPF (0.0-6.0) 03/23/20 13:36 U Epithel Cells (Auto) < 1.0 /HPF (0-13.0) 03/23/20 13:36 Amorphous Crystals Few 03/23/20 13:36 Short CBC 03/23/20 Range/Units 12:58 WBC 5.5 (4.5-11.0) K/mm3 Hgb 11.2 L (11.8-15.2) gm/dl Hct 33.1 L (35.5-45.6) % Plt Count 198 (140-440) K/mm3 BMP 03/23/20 12:58 Sodium 141 Potassium 4.5 Chloride 101.3 Carbon Dioxide 27 BUN 21 H Creatinine 1.5 H Glucose 53 L Calcium 10.5 H Urine 03/23/20 Range/Units 13:36 Urine Color Yellow (Yellow) Urine pH 8.0 H (5.0-7.0) Ur Specific [place] 1.014 (1.003-1.030) Urine Protein <15 mg/dl (Negative) mg/dL Urine Glucose (UA) Neg (Negative) mg/dL Assessment and Plan Advance Directives: Yes (Full code) Plan of care discussed with patient/family: Yes - Patient Problems (1) Hypoglycemia associated with type 2 diabetes mellitus Current Visit: Yes Status: Acute Plan to address problem: We will hold the hypoglycemics for now Once stable we will discharge him on lower dose of metformin and glyburide IV D5W for now (2) Acute kidney injury Current Visit: Yes Status: Acute Plan to address problem: IV fluids for now Vasomotor nephropathy (3) Hypertension Current Visit: Yes Status: Chronic Qualifiers: Hypertension type: essential hypertension Qualified Code(s): I10 - Essential (primary) hypertension Plan to address problem: Continue antihypertensives (4) T2DM (type 2 diabetes mellitus) Current Visit: Yes Status: Chronic Plan to address problem: Coverage for now (5) DVT prophylaxis Current Visit: Yes Status: Acute Plan to address problem: Heparin and GI prophylaxis
[2020-03-23] MEDS ORDERED: NON-FORMULARY EACH (Aspirin 81 MG) PO SCH (21:30)
[2020-03-23] MEDS ORDERED: BENAZEPRIL 10 MG PO SCH (21:30)
[2020-03-23] MEDS ORDERED: D5W/0.9% NACL 1,000 ML IV SCH (22:00)
[2020-03-23] MEDS: FAMOTIDINE 20 MG/2 ML INJ IV SCH (23:07)
[2020-03-23] MEDS: amLODIPine 10 MG TAB PO SCH (23:08)
[2020-03-24] MEDS: INSULIN LISPRO 100 UNIT/ML VIAL 3 mL SUB-Q SCH ×3 (03:00→10:42)
[2020-03-24 07:27] LABS: Basophils % (Auto) 0.9 % (0.0-1.8); Eosinophils # (Auto) 0.2 K/mm3 (0.0-0.4); Eosinophils % (Auto) 4.3 % (0.0-4.3); Hematocrit 31.1 % (35.5-45.6); Hemoglobin 10.6 gm/dl (11.8-15.2); Lymphocytes # (Auto) 1.2 K/mm3 (1.2-5.4); Mean Corpuscular HGB Conc 34 % (32-34); Mean Corpuscular Volume 96 fl (84-94); Monocytes # (Auto) 0.4 K/mm3 (0.0-0.8); Monocytes % (Auto) 9.5 % (0.0-7.3); Platelet Count 180 K/mm3 (140-440); Red Blood Count 3.25 M/mm3 (3.65-5.03); Red Cell Distribution Width 15.9 % (13.2-15.2)
[2020-03-24 07:51] LABS: Albumin 3.8 g/dL (3.9-5); Calcium 9.4 mg/dL (8.4-10.2)
[2020-03-24] MEDS: amLODIPine 10 MG TAB PO SCH (09:29)
[2020-03-24] MEDS: FAMOTIDINE 20 MG/2 ML INJ IV SCH (09:29)
[2020-03-24] MEDS ORDERED: DEXTROSE 50% IN WATER (25GM) 50 ML SYRINGE IV PRN (09:39)
--- NOTE | 2020-03-24 09:58 | Discharge Summary ---
Providers - Providers Date of Admission: 03/23/20 15:17 Attending physician: JENNIFER OLIVA Primary care physician: TURNER OFF Hospitalization Condition: Stable Pertinent studies: 03/23 CXR shows: HEART / MEDIASTINUM: No significant abnormality. LUNGS / PLEURA: Minimal left basilar atelectasis is seen. No definite acute infiltrates are noted. No pneumothorax. ADDITIONAL FINDINGS: No significant additional findings. IMPRESSION: No significant acute abnormality Hospital course: This is a 59-year-old male with HTN, DM type II, multiple myeloma s/p stem cell treatment presented emergency department on 03/23 for feeling very weak and anxious. He was found to be hypoglycemic which was aggravating his weakness and anxiety. Patient is on glyburide and metformin. Lab work in the emergency room revealed an increased creatinine of 1. and he was started dextrose iv. Overnight he was not hypoglycemic. He will be discharged home to home self-care. He has been instructed to stop taking his Glucotrol and continue his Metformin for his type 2 diabetes. He will need to follow-up with his primary care physician within 1 to 2 weeks of discharge. - Patient Problems (1) Hypoglycemia associated with type 2 diabetes mellitus Current Visit: Yes Status: Acute Plan to address problem: S/p D5W IV Stop Glucotrol upon discharge and continue metformin Accu-Cheks per primary care physician instructions Follow-up with your primary care physician within 1 to 2 weeks of discharge (2) Acute kidney injury Current Visit: Yes Status: Acute Plan to address problem: S/P D5W IV Admit creatinine 1.5, discharge creatinine 1.5 Secondary to vasomotor nephropathyfollow-up with primary care physician within 1 to 2 weeks of discharge (3) Hypertension Current Visit: Yes Status: Chronic Qualifiers: Hypertension type: essential hypertension Qualified Code(s): I10 - Essential (primary) hypertension Plan to address problem: Resume home antihypertensive regimen Blood pressure monitoring per primary care physician instructions (4) T2DM (type 2 diabetes mellitus) Current Visit: Yes Status: Chronic Plan to address problem: Continue home metformin, stop Glucotrol Follow-up with your primary care physician Disposition: TO HOME OR SELFCARE Time spent for discharge: 35 Core Measure Documentation - Palliative Care Palliative Care/ Comfort Measures: Not Applicable - Core Measures Any of the following diagnoses?: none Exam - Constitutional Vitals: Temp Pulse Resp BP Pulse Ox 98.3 F 81 18 106/60 97 03/23/20 21:44 03/23/20 23:08 03/23/20 23:00 03/24/20 09:30 03/23/20 23:00 General appearance: Present: no acute distress - EENT Eyes: Present: PERRL, EOM intact ENT: hearing intact, clear oral mucosa - Neck Neck: Present: supple - Respiratory Respiratory effort: normal Respiratory: bilateral: CTA - Cardiovascular Rhythm: regular Heart Sounds: Present: S1 & S2. Absent: systolic murmur, diastolic murmur - Extremities Extremities: no ischemia, pulses intact, pulses symmetrical, No edema, normal temperature, normal color, Full ROM Peripheral Pulses: within normal limits - Abdominal General gastrointestinal: Present: soft, non-tender, non-distended, normal bowel sounds - Integumentary Integumentary: Present: clear, warm, dry - Musculoskeletal Musculoskeletal: strength equal bilaterally - Psychiatric Psychiatric: appropriate mood/affect, cooperative - Neurologic Neurologic: CNII-XII intact, no focal deficits, moves all extremities - Allied Health Allied health notes reviewed: nursing Plan Activity: advance as tolerated Diet: diabetic Special Instructions: record daily BP diary, record blood sugar diary Additional Instructions: Contact primary care physician or present to nearest emergency department if worsening symptoms. Follow-up with your primary care physician within 1 to 2 weeks of discharge. Continue metformin and Glucotrol until evaluated by your primary care physician. Follow up with: PRIMARY MD KACI [Primary Care Provider] - 3-5 Days
[2020-03-24] MEDS ORDERED: LISINOPRIL 10 MG TAB PO SCH (10:00)
[2020-03-24] MEDS ORDERED: ASPIRIN 81 MG TAB CHEW PO SCH (10:00)
[2020-03-24] MEDS ORDERED: POMALYST 2 MG PO SCH (10:00)
[2020-03-24] MEDS ORDERED: INSULIN LISPRO 100 UNIT/ML VIAL 3 mL SUB-Q SCH (11:30)
[2020-03-24 13:12] VITALS: BP 120/70
[2020-03-24] MEDS ORDERED: FAMOTIDINE 20 MG TAB PO SCH (22:00)
== END 2020-03-24 13:05 | disposition home or self-care (01) ==
LOC: ED 11:06 → 3A 15:17
PROVIDERS: ADMIT Internal Medicine; ATTEND Internal Medicine
DX: E11.649 Type 2 diabetes mellitus with hypoglycemia without coma (principal); N17.9 Acute kidney failure, unspecified; I10 Essential (primary) hypertension; E11.21 Type 2 diabetes mellitus with diabetic nephropathy; Z98.890 Other specified postprocedural states; Z79.82 Long term (current) use of aspirin; Z79.84 Long term (current) use of oral hypoglycemic drugs
CPT/HCPCS: 36415; 71045; 80048; 80053; 81001; 82010; 82805; 82962; 83036; 85025; 96361; 96374; 96375; 96376; 99284; G0378; J7030; J7042